=== PATIENT | male | born 1970 | race Caucasian/White ===

== ENCOUNTER 2023-12-18 07:37 | Day surgery (SDC) | payer OTHER ==
[~2023-12-18] VITALS: Ht 165.1 cm; Wt 105.1 kg
[~2023-12-18 07:37] MED LIST: LIDOCAINE 2% 100MG/5ML SDV (FOR ANES.) As Ordered ONE; PRIL20TA2 PO; propofoL 200 MG/20 ML VIAL As Ordered ONE
[2023-12-18] MEDS: NS 1,000 ML IV ONE (08:01)
[2023-12-18 09:01] VITALS: TEMP 97.5
[2023-12-18 09:15] VITALS: BP 115/57; O2SAT 93
== END 2023-12-18 09:24 | disposition home or self-care (01) ==
LOC: M OPP 07:37
PROVIDERS: ATTEND Internal Medicine Gastroenterology
DX: Z12.11 Encounter for screening for malignant neoplasm of colon (principal); D12.6 Benign neoplasm of colon, unspecified; K64.8 Other hemorrhoids; K64.4 Residual hemorrhoidal skin tags; K57.30 Diverticulosis of large intestine without perforation or abscess without bleeding; G47.30 Sleep apnea, unspecified; Z99.89 Dependence on other enabling machines and devices; Z87.891 Personal history of nicotine dependence